=== PATIENT | male | born 1975 | race Caucasian/White ===

== ENCOUNTER 2019-04-30 10:51 | Emergency (ER) | payer OTHER ==
[2019-04-30] MEDS ORDERED: NORMAL SALINE 1000 ML 1,000 ML IV ONE ×2 (11:15→18:47)
--- NOTE | 2019-04-30 11:16 | ER Document Report ---
ED Medical Screen (RME) - General Chief Complaint: Abdominal Pain Stated Complaint: ABDOMINAL PAIN Time Seen by Provider: 04/30/19 11:11 Mode of Arrival: Ambulatory Information source: Patient Notes: Patient presents complaining of upper abdominal pain for the past 3 days. Patient states that he had nausea and vomiting 2 days ago but none since then. Patient reports temperature of 99 at home today. Patient denies any urinary symptoms. Patient reports history of high blood pressure diabetes and dyslipidemia. I have greeted and performed a rapid initial assessment of this patient. A comprehensive ED assessment and evaluation of the patient, analysis of test results and completion of the medical decision making process will be conducted by additional ED providers. - Related Data Allergies/Adverse Reactions: No Known Allergies Allergy (Unverified 04/30/19 10:55) Physical Exam - Vital signs Vitals: Temp Pulse Resp BP Pulse Ox 97.4 F 109 H 16 146/87 H 95 04/30/19 10:55 04/30/19 10:55 04/30/19 10:55 04/30/19 10:55 04/30/19 10:55 - Abdominal Tenderness: Tender - Upper abdomen Course - Vital Signs Vital signs: Temp Pulse Resp BP Pulse Ox 97.4 F 109 H 16 146/87 H 95 04/30/19 10:55 04/30/19 10:55 04/30/19 10:55 04/30/19 10:55 04/30/19 10:55
[2019-04-30 11:55] LABS: ABSOLUTE LYMPHOCYTES (AUTO) 1.5 10^3/uL (0.5-4.7); ABSOLUTE MONOCYTES (AUTO) 0.5 10^3/uL (0.1-1.4); ABSOLUTE NEUT (AUTO) 8.1 10^3/uL (1.7-8.2); BASOPHILS % (AUTO) 0.2 % (0-2); EOSINOPHILS % (AUTO) 0.3 % (0-6); HEMATOCRIT 47.4 % (37.9-51.0); HEMOGLOBIN 16.4 g/dL (13.5-17.0); LYMPHOCYTES % (AUTO) 14.9 % (13-45); MEAN CORPUSCULAR HEMOGLOBIN 30.4 pg (27.0-33.4); MEAN CORPUSCULAR HGB CONC 34.6 g/dL (32.0-36.0); MEAN CORPUSCULAR VOLUME 88 fl (80-97); MONOCYTES % (AUTO) 5.3 % (3-13); PLATELET COUNT 265 10^3/uL (150-450); RED BLOOD COUNT 5.39 10^6/uL (4.35-5.55); RED CELL DISTRIBUTION WIDTH 14.2 % (11.5-14.0); SEGMENTED NEUTROPHILS % (AUTO) 79.3 % (42-78); TOTAL CELLS COUNTED % (AUTO) 100 %; WHITE BLOOD COUNT 10.2 10^3/uL (4.0-10.5)
[2019-04-30 11:58] LABS: APPEARANCE,URINE CLEAR; BILIRUBIN,URINE SMALL (NEGATIVE); COLOR,URINE AMBER; GLUCOSE, URINE >=500 mg/dL (NEGATIVE); KETONES,URINE 20 mg/dL (NEGATIVE); LEUKOCYTE ESTERASE,URINE NEGATIVE (NEGATIVE); NITRITE,URINE NEGATIVE (NEGATIVE); PROTEIN,URINE 100 mg/dL (NEGATIVE); URINE SPECIFIC GRAVITY 1.041
[2019-04-30 12:13] LABS: ALBUMIN 4.9 g/dL (3.5-5.0); ALKALINE PHOSPHATASE 151 U/L (38-126); ANION GAP 15 (5-19); ASPARTATE AMINO TRANSFERASE 713 U/L (17-59); BILIRUBIN,DIRECT 1.6 mg/dL (0.0-0.4); BILIRUBIN,TOTAL 3.4 mg/dL (0.2-1.3); BLOOD UREA NITROGEN 16 mg/dL (7-20); CALCIUM 9.8 mg/dL (8.4-10.2); CARBON DIOXIDE 27 mmol/L (22-30); CHLORIDE 94 mmol/L (98-107); GLUCOSE 307 mg/dL (75-110); POTASSIUM 4.1 mmol/L (3.6-5.0); TOTAL PROTEIN 8.2 g/dL (6.3-8.2)
--- NOTE | 2019-04-30 14:08 | RADIOLOGY REPORT (SQ) ---
EXAM DESCRIPTION: U/S ABDOMEN LIMITED W/O DOP COMPLETED DATE/TIME: 04/30/2019 1:48 pm REASON FOR STUDY: upper abd pain COMPARISON: None. TECHNIQUE: Dynamic and static grayscale images acquired of the abdomen and recorded on PACS. Additio nal selected color Doppler and spectral images recorded. Note: Exam does not meet criteria for a complete doppler/duplex scan LIMITATIONS: Study limited due to acoustical interference from fat or from air in the bowel. FINDINGS: PANCREAS: Obscured. LIVER: Enlarged, measuring 21 cm. Echotexture is coarse with increased echogenicity consistent with fatty infiltration. LIVER VASCULATURE: Normal directional flow of the main portal vein and hepatic veins. GALLBLADDER: Gallstone(s). No pericholecystic fluid. No wall thickening. ULTRASOUND-DETECTED CHAUDHRY'S SIGN: Negative. INTRAHEPATIC DUCTS AND COMMON DUCT: CBD and intrahepatic ducts normal caliber. No filling defects. INFERIOR VENA CAVA: Normal flow. AORTA: No aneurysm. RIGHT KIDNEY: Normal size. Normal echogenicity. No solid or suspicious masses. No hydronephrosis. No calcifications. PERITONEAL AND PLEURAL SPACES: No ascites or effusions. OTHER: No other significant finding. IMPRESSION: NUMEROUS GALLSTONES. HEPATOMEGALY WITH DIFFUSE FATTY INFILTRATION OF THE LIVER. NO OTHE R SIGNIFICANT FINDING IN THE VISUALIZED ABDOMEN. TECHNICAL DOCUMENTATION: JOB ID: [id number] [employer]- All Rights Reserved Reading location - IP/workstation name: [email or web address]
[2019-04-30] MEDS ORDERED: ONDANSETRON HCL INJ/PF 4 MG/2 ML SDV IV ONE (14:27)
--- NOTE | 2019-04-30 14:27 | ER Document Report ---
ED GI/ - General Mode of Arrival: Ambulatory <CALLIE NOGUERA - Last Filed: 04/30/19 18:57> <NITESH BYRNES - Last Filed: 05/01/19 00:59> - General Chief Complaint: Abdominal Pain Stated Complaint: ABDOMINAL PAIN Time Seen by Provider: 04/30/19 11:11 Notes: Patient is complaining of abdominal pains for the past 3 days, since Friday evening. Has been nauseated and did vomit once on Friday but not since then. No diarrhea. Thinks he had a low-grade fever last night. Has no history of abdominal surgeries. No history of any abdominal surgeries. PMH: NIDDM, hypertension, high cholesterol. (CALLIE NOGUERA) - Related Data Allergies/Adverse Reactions: No Known Allergies Allergy (Unverified 04/30/19 10:55) Past Medical History - General Information source: Patient - Social History Smoking Status: Former Smoker Chew tobacco use (# tins/day): No Frequency of alcohol use: Occasional Drug Abuse: None Family History: Reviewed & Not Pertinent Patient has suicidal ideation: No Patient has homicidal ideation: No - Past Medical History Cardiac Medical History: Reports: Hx Hypercholesterolemia, Hx Hypertension Endocrine Medical History: Reports: Hx Diabetes Mellitus Type 2 Renal/ Medical History: Denies: Hx Peritoneal Dialysis Past Surgical History: Reports: None <CALLIE NOGUERA - Last Filed: 04/30/19 18:57> Review of Systems <CALLIE NOGUERA - Last Filed: 04/30/19 18:57> - Review of Systems Notes: REVIEW OF SYSTEMS: CONSTITUTIONAL : Denies fever. Except thought he may have a low-grade last night. EENT: Denies eye, ear, nose or mouth or throat pain or other symptoms. CARDIOVASCULAR: Denies chest pain. RESPIRATORY: Denies cough, chest congestion, or shortness of breath. GASTROINTESTINAL: See HPI. GENITOURINARY: Denies difficulty or painful urinating, urinary frequency, blood in urine. MUSCULOSKELETAL: Denies back or neck pain. Denies joint pain or swelling. SKIN: Denies rash or skin lesions. NEUROLOGICAL: Denies LOC or altered mental status. Denies headache. Denies sensory loss or motor deficits. ALL OTHER SYSTEMS REVIEWED AND NEGATIVE. (CALLIE NOGUERA) Physical Exam - Vital signs Interpretation: Normal <CALLIE NOGUERA - Last Filed: 04/30/19 18:57> - Vital signs Vitals: Temp Pulse Resp BP Pulse Ox 97.4 F 109 H 16 146/87 H 95 04/30/19 10:55 04/30/19 10:55 04/30/19 10:55 04/30/19 10:55 04/30/19 10:55 Notes: PHYSICAL EXAMINATION: GENERAL: Well-appearing, in no acute distress. Appears uncomfortable. HEAD: Atraumatic, normocephalic. EYES: Pupils equal round and reactive to light, extraocular movements intact. ENT: oropharynx clear without exudates. Moist mucous membranes. NECK: Normal range of motion, supple. LUNGS: Breath sounds clear and equal bilaterally. HEART: Regular rate and rhythm without murmurs. ABDOMEN: Tender mid epigastrium primarily but the upper half of the abdomen in its entirety is tender. Slight guarding. No rebound. Lower abdomen not tender. BACK: No tenderness throughout entire back. EXTREMITIES: Normal range of motion without pain. NEUROLOGICAL: Normal speech, normal gait. Normal sensory, motor, and reflex exams. Awake, alert, and oriented x3. Cranial nerves normal. SKIN: Warm, dry, no rashes. (CALLIE NOGUERA) Course - Laboratory Result Diagrams: 04/30/19 11:35 04/30/19 11:35 - Diagnostic Test Radiology reviewed: Image reviewed, Reports reviewed - Patient has multiple gallstones. Gallbladder does not show evidence of infection. No pericolic cystic fluid and no wall thickening. The common bile duct and intrahepatic ducts are of normal caliber. <CALLIE NOGUERA - Last Filed: 04/30/19 18:57> - Laboratory Result Diagrams: 04/30/19 11:35 04/30/19 11:35 <NITESH BYRNES - Last Filed: 05/01/19 00:59> - Re-evaluation Re-evalutation: 04/30/19 14:36 Patient's lipase is elevated and is ultrasound shows gallstones without apparent obstruction of the common bile duct. Will contact surgeon for Further planning. 04/30/19 18:49 Elevated lipase and LFTs with normal gallbladder and only containing stones, these findings are concerning for a possible stone in the common bile duct, even though these do not appear to be dilated on the ultrasound. Spoke with the surgeon, Dr. Pierson, and he examined the patient and recommended that he be tra nsferred to a facility had that has available ERCP. I contacted [facility], and [facility], and none of these 3 facilities had ERCP available or that they could accept the patient will be seen sooner than the next 2 to 3 days. [facility] , who accepted the patient in transfer. (CALLIE NOGUERA) 04/30/19 22:22 Patient reevaluated try prior to transfer. Comfortable, stable, appropriate for transfer (NITESH BYRNES) - Vital Signs Vital signs: Temp Pulse Resp BP Pulse Ox 97.4 F 109 H 16 113/72 95 04/30/19 10:55 04/30/19 10:55 04/30/19 10:55 04/30/19 22:51 04/30/19 21:00 - Laboratory Laboratory results interpreted by me: 04/30/19 04/30/19 04/30/19 11:35 11:35 11:35 RDW 14.2 H Seg Neutrophils % 79.3 H Sodium 135.9 L Chloride 94 L Glucose 307 H Total Bilirubin 3.4 H Direct Bilirubin 1.6 H AST 713 H Alkaline Phosphatase 151 H Lipase 4322.4 H Urine Protein 100 H Urine Glucose (UA) >=500 H Urine Ketones 20 H Urine Blood SMALL H Urine Bilirubin SMALL H Urine Urobilinogen 4.0 H Discharge <CALLIE NOGUERA - Last Filed: 04/30/19 18:57> <NITESH BYRNES - Last Filed: 05/01/19 00:59> - Discharge Clinical Impression: Abdominal pain Condition: Stable Disposition: [facility]
[2019-04-30] MEDS ORDERED: MORPHINE SULFATE 10 MG/ML INJ IV ONE ×2 (14:28→18:49)
--- NOTE | 2019-04-30 15:40 | PDOC CONSULTATION ---
Consultation Consult Date: 04/30/19 Provider Consulted: SHANNAN CHAPMAN Consult reason:: gallstone pancreatitis History of Present Illness History of Present Illness: ASHLEY ROMEO JR is a 43 year old male who developed epigastric pains with nausea and vomiting 2 days ago after eating pizza. Never had this pains in the past. Yesterday had sa low grade fever but his pains wre persistent today. In the ED noted gallstones on US with normal caliber bile ducts and no evidence of acute cholecystitis. His LFT's and lipase are elevated. No fever nor chills today. WBC is 10.2. Past Medical History Cardiac Medical History: Reports: Hyperlipidema, Hypertension Endocrine Medical History: Reports: Diabetes Mellitus Type 2 Past Surgical History Past Surgical History: Reports: None Social History Smoking Status: Former Smoker Family History Family History: Reviewed & Not Pertinent Parental Family History Reviewed: Yes Children Family History Reviewed: No Sibling(s) Family History Reviewed.: No Medication/Allergy Allergies/Adverse Reactions: No Known Allergies Allergy (Unverified 04/30/19 10:55) Review of Systems Constitutional: PRESENT: as per HPI Physical Exam Vital Signs: Temp Pulse Resp BP Pulse Ox 97.4 F 109 H 16 146/87 H 95 04/30/19 10:55 04/30/19 10:55 04/30/19 10:55 04/30/19 10:55 04/30/19 10:55 Intake & Output 04/29/19 04/30/19 05/01/19 06:59 06:59 06:59 Intake Total 1000 Balance 1000 Weight 122.9 kg General appearance: PRESENT: mild distress Head exam: PRESENT: atraumatic Eye exam: PRESENT: conjunctiva pink Mouth exam: PRESENT: dry mucosa Neck exam: PRESENT: full ROM Respiratory exam: PRESENT: clear to auscultation iban Cardiovascular exam: PRESENT: RRR Pulses: PRESENT: normal radial pulses Vascular exam: PRESENT: normal capillary refill GI/Abdominal exam: PRESENT: soft, tenderness - epigastric Extremities exam: PRESENT: full ROM Musculoskeletal exam: PRESENT: ambulatory Neurological exam: PRESENT: alert, oriented to person, oriented to place, oriented to time, oriented to situation Psychiatric exam: PRESENT: appropriate affect Skin exam: PRESENT: normal color, warm Results Laboratory Results: 04/30/19 11:35 04/30/19 11:35 04/30/19 04/30/19 04/30/19 11:35 11:35 11:35 WBC 10.2 RBC 5.39 Hgb 16.4 Hct 47.4 MCV 88 MCH 30.4 MCHC 34.6 RDW 14.2 H Plt Count 265 Seg Neutrophils % 79.3 H Lymphocytes % 14.9 Monocytes % 5.3 Eosinophils % 0.3 Basophils % 0.2 Absolute Neutrophils 8.1 Absolute Lymphocytes 1.5 Absolute Monocytes 0.5 Absolute Eosinophils 0.0 Absolute Basophils 0.0 Sodium 135.9 L Potassium 4.1 Chloride 94 L Carbon Dioxide 27 Anion Gap 15 BUN 16 Creatinine 0.91 Est GFR ( Amer) > 60 Est GFR (Non-Af Amer) > 60 Glucose 307 H Calcium 9.8 Total Bilirubin 3.4 H AST 713 H Alkaline Phosphatase 151 H Total Protein 8.2 Albumin 4.9 Lipase 4322.4 H Urine Color STEPHANIE Urine Appearance CLEAR Urine pH 6.0 Ur Specific Brewster 1.041 Urine Protein 100 H Urine Glucose (UA) >=500 H Urine Ketones 20 H Urine Blood SMALL H Urine Nitrite NEGATIVE Ur Leukocyte Esterase NEGATIVE Urine WBC (Auto) 2 Urine RBC (Auto) 1 Impressions: Abdomen Ultrasound 04/30/19 11:15 IMPRESSION: NUMEROUS GALLSTONES. HEPATOMEGALY WITH DIFFUSE FATTY INFILTRATION OF THE LIVER. NO OTHER SIGNIFICANT FINDING IN THE VISUALIZED ABDOMEN. Assessment & Plan - Diagnosis (1) Cholelithiasis Is this a current diagnosis for this admission?: Yes (2) Gallstone pancreatitis Is this a current diagnosis for this admission?: Yes (3) elevated LFT's Is this a current diagnosis for this admission?: Yes - Time Time Spent: 30 to 50 Minutes - Inpatient Certification Medical Necessity: Need For IV Fluids, Need for Pain Control, Need for IV A ntibiotics, Need for Surgery - Plan Summary Plan Summary: Tried to get hold of GI. Left message. He is not on emergency consult. Will likely need to be transfered out to a facility with emergency ERCP capability(GI)
[2019-04-30 22:51] VITALS: BP 113/72
--- NOTE | 2019-05-01 10:33 | EKG REPORT ---
SEVERITY:- NORMAL ECG - SINUS RHYTHM : Confirmed by: Alexia Rodarte 01-May-2019 10:33:12
== END 2019-04-30 22:52 | disposition short-term general hospital (02) ==
LOC: ER 10:51
DX: K80.80 Other cholelithiasis without obstruction (principal); K85.10 Biliary acute pancreatitis without necrosis or infection; R94.5 Abnormal results of liver function studies; R10.10 Upper abdominal pain, unspecified; R11.2 Nausea with vomiting, unspecified; E11.9 Type 2 diabetes mellitus without complications; E78.00 Pure hypercholesterolemia, unspecified; I10 Essential (primary) hypertension
CPT/HCPCS: 93005; 96376; 99285; 96361; 96374; 96375; 36415; 83690; 85025; 80053; 81001; 76705; 93010; J2270; J2405; J7030